=== PATIENT | male | born 1960 | race Hispanic/Latino ===

== ENCOUNTER 2020-01-03 08:06 | Outpatient (CLI) | payer OTHER ==
--- NOTE | 2020-01-03 13:40 | PET ---
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 Exam is requested for init ial staging. TECHNIQUE: PET scanning with CT attenuation correction was performed from the vertex through the proximal thighs following the intravenous administration of 11 mCi [id number]. COMPARISON: None. CORRELATION: CT neck dated 11/18/[address] chest dated 12/17/2019. FINDINGS: There is hypermetabolic activity in the left lower neck mass seen on the CT scan of 12/05/2019 (matte d conglomeration of Level III and Level IV cervical lymph nodes). This demonstrates a SUV of 13. No damir hypermetabolism is seen in the left cervical, mediastinal, hilar, axillary, abdominal, or pe lvic lymph nodes. No hypermetabolic pulmonary nodules, liver, adrenal, or skeletal lesions are seen. There is physiologic activity in the brain, GI and tracts. The CT scan used for attenuation correction demonstrates no evidence of pleural effusions or ascites. 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 POS: [facility]
== END 2020-01-03 08:07 | disposition home or self-care (01) ==
LOC: PET 08:06
PROVIDERS: ATTEND Internal Medicine Hematology & Oncology
DX: C09.9 Malignant neoplasm of tonsil, unspecified (principal)
CPT/HCPCS: 78815; A9552

== ENCOUNTER 2020-01-18 06:39 | Outpatient (CLI) | payer OTHER, SELFPAY ==
[2020-01-20 12:10] LABS: SARS-CoV-2 MS2 Positive; SARS-CoV-2 N Gene Negative; SARS-CoV-2 S Gene Negative; SARS-CoV-2 by NAA Not Detected (NotDetected); SARS-CoV-2 orf1ab Negative
--- NOTE | 2020-01-23 06:56 | EKG ---
Test Reason : Blood Pressure : / mmHG Vent. Rate : 093 BPM Atrial Rate : 093 BPM P-R Int : 176 ms QRS Dur : 074 ms QT Int : 362 ms P-R-T Axes : 039 123 009 degrees QTc Int : 450 ms Normal sinus rhythm Right axis deviation Low voltage QRS Septal infarct , age undetermined Abnormal ECG No previous ECGs available Confirmed by DEISY BOOTH MD ([id number]) on 01/23/2020 6:55:49 AM Referred By: SALOMON Confirmed By:DEISY BOOTH MD
== END 2020-01-18 06:40 | disposition home or self-care (01) ==
LOC: LABBT 06:39
PROVIDERS: ATTEND Specialist
DX: Z01.818 Encounter for other preprocedural examination (principal); C09.9 Malignant neoplasm of tonsil, unspecified; Z20.828 Contact with and (suspected) exposure to other viral communicable diseases
CPT/HCPCS: 87635; 93005; 93010; U0003

== ENCOUNTER 2020-01-23 12:23 | Day surgery (SDC) | payer OTHER ==
--- NOTE | 2020-01-22 08:53 | HP ---
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 He has had a right-sided neck mass for several years. He presented to the ER with chest pain and dyspnea, was evaluated there and upon mentioning the right neck mass, underwent a CAT scan suggesting a tonsillar malignancy. He followed up with Dr. Dunn and had a tonsillectomy revealing squamous cell carcinoma of left tonsil. I have been asked by Dr. Montaño and Dr. Booker to place a MediPort and PEG tube. The patient reports intermittent chest pain and dyspnea, which has never been addressed. He is 59 years old. FAMILY HISTORY: Significant that his mother of CHF. ALLERGIES: NONE. SOCIAL HISTORY: Tobacco, dips, cessation 4 weeks ago. Alcohol abuse, cessation 4 weeks ago. Six pack a day prior. PAST SURGICAL HISTORY: Umbilical hernia repair, tonsillectomy, postoperative bleeding. PAST MEDICAL HISTORY: Tonsillar cancer. REVIEW OF SYSTEMS: Ten-point noncontributory except as noted above. PHYSICAL EXAMINATION: VITAL SIGNS: 218 pounds, 68 inches, 33 BMI. Blood pressure 127/71, pulse 78, temperature 98.8 degrees. HEAD, EARS EYES, NOSE, AND THROAT: Unremarkable. LUNGS: Clear to auscultation. CARDIAC: Regular rate and rhythm without murmur or gallop. ABDOMEN: Soft, nontender. Psoriasis skin lesions, abdominal wall. EXTREMITIES: Unremarkable. ASSESSMENT AND PLAN: 1. Tonsillar squamous cell carcinoma. Plan placement of MediPort and PEG tube. Plan is under IV sedation and local anesthesia. Risks of infection, bleeding, reoperation discussed. 2. Chest pain intermittently associated with dyspnea. He will see Dr. Laurent today. 3. History of alcohol abuse, cessation 4 weeks ago. 4. History of chewing tobacco abuse, cessation 4 weeks ago. Job ID: [id number]
[2020-01-22 12:09] VITALS: BMI 30.4
[~2020-01-23 12:23] MED LIST: Glycopyrrolate 0.2 MG/ML 5 ML SYRINGE ONE; Ondansetron PF 4 MG/2 ML Vial ONE; PHENYLEPHRINE-NS 100 MCG/ML 10 ML SYRINGE ONE; Rocuronium Bromide 10 MG/ML (10ML VIAL) ONE; ePHEDrine 50 MG/ML VIAL ONE
[2020-01-23] MEDS ORDERED: Bupivacaine PF 0.5% 30 ML VIAL ONE (15:28)
[2020-01-23] MEDS ORDERED: Lidocaine 1% w/Epinephrine 1:100K 20 ML VIAL ONE (15:28)
[2020-01-23] MEDS ORDERED: Sodium Chloride 0.9% 10 ML ONE (15:28)
[2020-01-23] MEDS ORDERED: Ketamine 50 MG/ML (10ML VIAL) ONE (15:43)
[2020-01-23] MEDS ORDERED: Midazolam HCl 2 mg/2 ml Vial ONE (15:43)
[2020-01-23] MEDS ORDERED: Dexmedetomidine 200 MCG/2 ML VIAL ONE (15:44)
[2020-01-23] MEDS ORDERED: SUGAMMADEX SODIUM 200 MG/2 ML VIAL ONE (15:52)
[2020-01-23] MEDS ORDERED: Fentanyl 100 MCG/2 ML VIAL ONE (17:15)
--- NOTE | 2020-01-23 17:15 | RAD ---
PORTABLE CHEST: 01/23/20 HISTORY: Mediport placement. Mediport catheter has been placed in the right subclavian vein. The line overlies the SVC and appear s adequately positioned. The lung mcgowan appear clear. Heart and mediastinum unremarkable. IMPRESSION: No acute process. POS: [facility]
--- NOTE | 2020-01-23 18:31 | OP ---
DATE OF PROCEDURE: 01/23/2020 PREOPERATIVE DIAGNOSIS: Tonsillar cancer, dysphagia. PROCEDURE PERFORMED: Right subclavian vein MediPort, standard percutaneous endoscopic gastroscopy. ANESTHESIA: General, local 0.5% Marcaine 30 mL mixed with 1% Xylocaine with epinephrine 20 mL. DESCRIPTION OF PROCEDURE: Patient was taken to the operating room, where under general anesthesia, neck, chest, and abdomen prepared with ChloraPrep and draped in routine standard fashion. Local anesthetic was infiltrated in the skin and subcutaneous tissue about the operative site. Right subclavian vein cannulated an infraclavicular approach, obtaining good venous blood, J-wire threaded, trocar catheter removed. Skin site enlarged sharply and subcutaneous pocket created with blunt and sharp dissection for the MediPort. Dilator and Peel-Away sheath placed with J-wire in superior vena cava. Dilator and J-wire removed. Catheter placed with Peel-Away sheath. Peel-Away sheath removed. Fluoroscopic tip placed in optimal position tailored to length and catheter connected to the MediPort, placed in subcutaneous pocket, secured with 2 interrupted suture of 3-0 Prolene. Subcutaneous tissue was approximated with 3-0 Monocryl, skin with subdermal 4-0 Monocryl and [employer] glue applied. Final fluoroscopic images revealed good MediPort and catheter placement. MediPort accessed with a Babcock needle, aspirated blood, flushed with heparinized saline solution. Endoscope was placed per os under direct visualization. Using air insufflation, passed throughout the esophagus and the stomach. Good indentation noted left subcostal. Local anesthetic infiltrated in the skin, subcutaneous tissue. Stab incision made, trocar catheter introduced, visualized endoscopically within the gastric lumen, threading the wire, grasping with a snare through the endoscope, removing the endoscope and snare and wire. Wire connected to the feeding tube, which was lubricated, pulled back down the esophagus, fixating against the abdominal wall with a fixation device, tailored to length and the feeding device secured. Patient tolerated the procedure well. Job ID: [id number]
[2020-01-23] MEDS ORDERED: traMADol HCl 50 MG TAB ONE (18:49)
== END 2020-01-23 19:10 | disposition home or self-care (01) ==
LOC: SDC 12:23
PROVIDERS: ATTEND Specialist
PROC: 02HV33Z Insertion of Infusion Device into Superior Vena Cava, Percutaneous Approach (ICD-10-PCS; principal; 2020-01-23)
PROC: 0DH63UZ Insertion of Feeding Device into Stomach, Percutaneous Approach (ICD-10-PCS; principal; 2020-01-23)
DX: C09.9 Malignant neoplasm of tonsil, unspecified (principal); Z79.899 Other long term (current) drug therapy; Z87.891 Personal history of nicotine dependence; Z91.038 Other insect allergy status
CPT/HCPCS: 71045; C1788; J0690; J1642; J2250; J2405; J3010; J3490; S0020

== ENCOUNTER 2020-03-24 18:41 | Emergency (ER) | payer OTHER | END 2020-03-24 22:00 | disposition home or self-care (01) | LOC: ERS 18:41 | DX: K94.23 Gastrostomy malfunction (principal); Z79.899 Other long term (current) drug therapy; B19.20 Unspecified viral hepatitis C without hepatic coma; K74.60 Unspecified cirrhosis of liver | CPT/HCPCS: 99282 ==

== ENCOUNTER 2020-05-29 08:55 | Outpatient (CLI) | payer OTHER | END 2020-05-29 08:56 | disposition home or self-care (01) | LOC: PET 08:55 | PROVIDERS: ATTEND Internal Medicine Hematology & Oncology | DX: C02.4 Malignant neoplasm of lingual tonsil (principal); K76.6 Portal hypertension; R18.8 Other ascites | CPT/HCPCS: 78815; A9552 ==

== ENCOUNTER 2023-02-04 07:25 | Outpatient (CLI) | payer MEDICARE ==
[2023-02-04] MEDS ORDERED: Iopamidol 370 76% 100 ML VIAL ONE (13:29)
[2023-02-04] MEDS ORDERED: Magnevist 469MG/ML 20 ML VIAL ONE (13:51)
== END 2023-02-04 07:26 | disposition home or self-care (01) ==
LOC: CT 07:25
PROVIDERS: ATTEND Internal Medicine Hematology & Oncology
DX: C02.4 Malignant neoplasm of lingual tonsil (principal); R41.0 Disorientation, unspecified; R29.6 Repeated falls
CPT/HCPCS: 70491; 70553; A9579; Q9967